=== PATIENT | male | born 1930 | race Caucasian/White ===

== ENCOUNTER 2016-07-01 12:23 | Emergency (ER) | payer MEDICARE, BC ==
[~2016-07-01] VITALS: Ht 180.3 cm; Wt 80.0 kg
[~2016-07-01 12:23] MED LIST: BLOOD PRESSURE; CIPR500T2 PO; DIOV80TA4 PO; LORT5TAB PO; METR-1 PO; PROS5TAB2 PO; STOO100C PO
[2016-07-01 12:24] VITALS: BP 123/73; PULSE 82; RESP 15; TEMP 98.1; O2SAT 95
[2016-07-01 12:38] VITALS: BP 183/88; PULSE 66; RESP 16; O2SAT 98
[2016-07-01] MEDS ORDERED: SODIUM CHLOR 0.9% 1000 ML INJ 1,000 ML IV SCH (12:45)
[2016-07-01] MEDS ORDERED: SODIUM CHLORIDE 0.9% FLUSH 10 ML FLUSH IV FLUSH PRN (12:45)
--- NOTE | 2016-07-01 12:50 | PD ---
HPI Chief Complaint: Pain: Acute or Chronic Time Seen by Provider: 12:37 Travel History International Travel<30 days: No Contact w/Intl Traveler<30days: No Traveled to known affect area: No History of Present Illness HPI 86-year-old male here for evaluation of right inguinal pain for the last week. Pain is been intermittent, worse with bending over. He has noticed a slight lump in this area. He was seen by his primary care physician who referred him to general surgeon Dr. Wang whom the patient has an appointment within 2 days. Patient reports history of appendectomy. No other abdominal surgeries. Last bowel movement was yesterday and was normal. No vomiting. No urinary symptoms. PFSH Past Medical History Diminished Hearing: No Genitourinary: Yes (ENLARGED PROSTATE) Hypertension: Yes Tetanus Vaccination: Unknown Influenza Vaccination: Yes Past Surgical History Appendectomy: Yes Social History Alcohol Use: Yes (2 DRINKS WITH DINNER) Tobacco Use: No Substance Use: No Allergies-Medications (Allergen,Severity, Reaction): Coded Allergies: No Known Allergies (Verified , 07/01/16) Reported Meds & Prescriptions Reported Meds & Active Scripts Active Review of Systems Except as stated in HPI: all other systems reviewed are Neg Physical Exam Narrative GENERAL: Well-developed, well-nourished, comfortable, no acute distress. SKIN: Focused skin assessment warm/dry. HEAD: Atraumatic. Normocephalic. EYES: Pupils equal and round. No scleral icterus. No injection or drainage. ENT: No nasal bleeding or discharge. Mucous membranes pink and moist. CARDIOVASCULAR: Regular rate and rhythm. No murmur appreciated. RESPIRATORY: No accessory muscle use. Clear to auscultation. Breath sounds equal bilaterally. GASTROINTESTINAL: Abdomen soft, non-tender, nondistended. No peritoneal signs. : Small right direct inguinal hernia that is easily reducible. Rest of exam is normal. MUSCULOSKELETAL: No obvious deformities. No clubbing. No cyanosis. No edema. NEUROLOGICAL: Awake and alert. No obvious cranial nerve deficits. Motor grossly within normal limits. Normal speech. PSYCHIATRIC: Appropriate mood and affect; insight and judgment normal. Data Data Last Documented VS Vital Signs Date Time Temp Pulse Resp B/P Pulse Ox O2 Delivery O2 Flow Rate FiO2 07/01/16 13:16 16 98 Room Air 07/01/16 12:38 66 183/88 07/01/16 12:24 98.1 Orders Complete Blood Count With Diff (07/01/16 12:45) Comprehensive Metabolic Panel (07/01/16 12:45) Prothrombin Time / Inr (Pt) (07/01/16 12:45) Act Partial Throm Time (Ptt) (07/01/16 12:45) Ct Abd/Pel W Iv Contrast(Rout) (07/01/16 12:45) Iv Access Insert/Monitor (07/01/16 12:45) Ecg Monitoring (07/01/16 12:45) Oximetry (07/01/16 12:45) Sodium Chlor 0.9% 1000 Ml Inj (Ns 1000 M (07/01/16 12:45) Sodium Chloride 0.9% Flush (Ns Flush) (07/01/16 12:45) Iohexol 350 Inj (Omnipaque 350 Inj) (07/01/16 14:07) Labs Laboratory Tests Test 07/01/16 13:00 White Blood Count 8.6 TH/MM3 Red Blood Count 4.39 MIL/MM3 Hemoglobin 15.3 GM/DL Hematocrit 43.7 % Mean Corpuscular Volume 99.7 FL Mean Corpuscular Hemoglobin 34.9 PG Mean Corpuscular Hemoglobin 35.0 % Concent Red Cell Distribution Width 13.1 % Platelet Count 188 TH/MM3 Mean Platelet Volume 7.3 FL Neutrophils (%) (Auto) 73.5 % Lymphocytes (%) (Auto) 17.5 % Monocytes (%) (Auto) 8.4 % Eosinophils (%) (Auto) 0.4 % Basophils (%) (Auto) 0.2 % Neutrophils # (Auto) 6.3 TH/MM3 Lymphocytes # (Auto) 1.5 TH/MM3 Monocytes # (Auto) 0.7 TH/MM3 Eosinophils # (Auto) 0.0 TH/MM3 Basophils # (Auto) 0.0 TH/MM3 CBC Comment DIFF FINAL Differential Comment Prothrombin Time 9.9 SEC Prothromb Time International 0.9 RATIO Ratio Activated Partial 23.0 SEC Thromboplast Time Sodium Level 137 MEQ/L Potassium Level 4.4 MEQ/L Chloride Level 106 MEQ/L Carbon Dioxide Level 22.5 MEQ/L Anion Gap 9 MEQ/L Blood Urea Nitrogen 26 MG/DL Creatinine 1.28 MG/DL Estimat Glomerular Filtration 53 ML/MIN Rate Random Glucose 99 MG/DL Calcium Level 8.7 MG/DL Total Bilirubin 1.1 MG/DL Aspartate Amino Transf 16 U/L (AST/SGOT) Alanine Aminotransferase 29 U/L (ALT/SGPT) Alkaline Phosphatase 69 U/L Total Protein 7.0 GM/DL Albumin 3.2 GM/DL [facility] Medical Decision Making Medical Screen Exam Complete: Yes Emergency Medical Condition: Yes Differential Diagnosis Inguinal hernia, bowel obstruction unlikely, strangulated/incarcerated hernia not likely, UTI, cystitis, colitis Narrative Course Vital signs reviewed. CBC is unremarkable. CMP is unremarkable. CT abdomen pelvis: CONCLUSION: 1. Moderate vascular disease. 2. I don't see an etiology for patient's right inguinal pain. 3. 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 4. 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 5. Large prostate. Patient has a direct right inguinal hernia that was easily reducible on my initial exam. His abdominal exam is benign. No peritoneal signs. He is resting comfortably. He has an appointment with surgical attending Dr. Wang in 2 days. Both the patient and the patient's family were made aware of all findings and were provided a copy of this CT abdomen pelvis report. He is stable for discharge home with outpatient follow-up. He was informed on when to return to the emergency department. He verbalizes understanding and agreement with plan. Diagnosis Primary Impression: Reducible right inguinal hernia Referrals: Antony Wang MD 2 days Additional Instructions: Follow-up with Dr. Wang in 2 days as scheduled. Return to the emergency department for worsening symptoms or any other concerns as discussed. Disposition: 01 DISCHARGE HOME Condition: Stable Hong Hardy MD Jul 01, 2016 12:50
[2016-07-01 13:16] VITALS: RESP 16; O2SAT 98
[2016-07-01 13:28] LABS: AUTOMATED NEUTROPHIL # 6.3 TH/MM3 (1.8-7.7); BASOPHIL % 0.2 % (0.0-2.0); EOSINOPHIL % 0.4 % (0.0-4.0); HEMATOCRIT 43.7 % (39.0-51.0); HEMO FLAGS DIFF FINAL; LYMPH % 17.5 % (9.0-44.0); LYMPHOCYTE # 1.5 TH/MM3 (1.0-4.8); MEAN CELL VOLUME 99.7 FL (80.0-100.0); MEAN CORPUSCULAR HEMOGLOBIN 34.9 PG (27.0-34.0); MONO % 8.4 % (0.0-8.0); NEUT % 73.5 % (16.0-70.0); PLATELET COUNT 188 TH/MM3 (150-450); RED BLOOD COUNT 4.39 MIL/MM3 (4.50-5.90); RED CELL DISTRIBUTION WIDTH 13.1 % (11.6-17.2); WHITE BLOOD COUNT 8.6 TH/MM3 (4.0-11.0)
[2016-07-01 13:36] LABS: INTERNATIONAL NORMALIZED RATIO 0.9 RATIO; PROTHROMBIN TIME - PATIENT 9.9 SEC (9.8-11.6)
[2016-07-01 13:50] LABS: ALT (GPT) 29 U/L (12-78); ANION GAP 9 MEQ/L (5-15); AST (GOT) 16 U/L (15-37); BICARBONATE 22.5 MEQ/L (21.0-32.0); BLOOD UREA NITROGEN 26 MG/DL (7-18); CHLORIDE 106 MEQ/L (98-107); GLOMERULAR FILTRATION RATE 53 ML/MIN (>89); POTASSIUM 4.4 MEQ/L (3.5-5.1); SODIUM (NA) 137 MEQ/L (136-145)
[2016-07-01 13:52] LABS: ALKALINE PHOSPHATASE 69 U/L (45-117); TOTAL BILIRUBIN ADULT 1.1 MG/DL (0.2-1.0)
[2016-07-01] MEDS ORDERED: IOHEXOL 350 MG/ML 10 ML VIAL (for RAD DIAG) IV ONE (14:07)
--- NOTE | 2016-07-01 14:20 | RADRPT ---
EXAM DATE/TIME: 07/01/2016 14:05 [facility] COMPARISON: No previous studies available for comparison. INDICATIONS : Right inguinal pain for one week. IV CONTRAST: 70 cc Omnipaque 350 (iohexol) IV ORAL CONTRAST: No oral contrast ingested. RADIATION DOSE: 9.28 CTDIvol (mGy) MEDICAL HISTORY : Hypertension. Enlarged prostate. SURGICAL HISTORY : Appendectomy. ENCOUNTER: Initial ACUITY: 1 day PAIN SCALE: 3/10 LOCATION: Right pelvis TECHNIQUE: Volumetric scanning of the abdomen and pelvis was performed. Using automated exposure control and adjustment of the mA and/or kV according to patient size, radiation dose was kept as low as reasonably achievable to obtain optimal diagnostic quality images. FINDINGS: Very minimal parenchymal changes are seen in the right lung base. There is no pericardial effusion. Two well-circumscribed 6 mm defects are present in the liver, probably cysts. Spleen, pancreas, adre nal glands and kidneys are unremarkable. Region of the cecum and terminal ileum appear unremarkable. Pelvic contents are remarkable only for a large prostate. There is no inguinal adenopathy identified . There is dilatation of both common iliac arteries with some mural thrombus identified on the left. T he iliac on the left is dilated to 2.5 cm. I don't see any etiology for the patient's right inguinal pain. CONCLUSION: 1. Moderate vascular disease. 2. I don't see an etiology for patient's right inguinal pain. 3. 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 4. 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 5. Large prostate. Dayne Villalba MD FACR on July 01, 2016 at 14:14 Board Certified Radiologist. This report was verified electronically.
== END 2016-07-01 15:34 | disposition home or self-care (01) ==
LOC: NEPA 12:23
DX: K40.90 Unilateral inguinal hernia, without obstruction or gangrene, not specified as recurrent (principal); I99.9 Unspecified disorder of circulatory system; I10 Essential (primary) hypertension; K76.89 Other specified diseases of liver; N40.0 Benign prostatic hyperplasia without lower urinary tract symptoms
CPT/HCPCS: 74177; 80053; 85025; 85610; 85730; 96360; 96361; 99284; J7030; Q9967

== ENCOUNTER → 2016-08-08 | Day surgery (SDC) | payer MEDICARE, BC ==
[~2016-08-08] MED LIST changes: +ACETAMINOPHEN 1000 MG/100 ML VIAL IV ONE; -BLOOD PRESSURE; +BUPIVACAINE/EPINEPHRINE 0.25% 50 ML VIAL ONE; -CIPR500T2 PO; -DIOV80TA4 PO; +LACTATED RINGER'S 1,000 ML BAG IV ONE; +LACTATED RINGER'S 1000 ML INJ 1,000 ML ONE; +LIDOCAINE 1%/EPINEPHrine 1:100,000 SOLN 20 ML VIAL ONE; -LORT5TAB PO; +MEPERIDINE HCL 25 MG/ML VIAL ONE; -METR-1 PO; +MIDAZOLAM HCL 2 MG/2 ML VIAL ONE; +ONDANSETRON HCL 4 MG/2 ML VIAL IV PUSH ONE; +PROPOFOL 200 MG/20 ML AMP IV ONE; -PROS5TAB2 PO; -STOO100C PO; +VANCOMYCIN HCL 1000 MG VIAL ONE; +ceFAZolin INJ 1,000 MG VIAL ONE
--- NOTE | 2016-08-09 17:26 | MP ---
cc: JUDY LOPEZ M.D., MICHAEL A. MD DATE OF SURGERY 08/08/2016 PROCEDURE 1. Right inguinal hernia repair with mesh. 2. 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 PREOPERATIVE DIAGNOSIS Symptomatic right inguinal hernia, reducible. POSTOPERATIVE DIAGNOSIS Symptomatic right inguinal hernia, reducible. ANESTHESIA LMA. SURGEON Kirsten Wang MD ESTIMATED BLOOD LOSS Less than 10 mL FLUIDS 1250 mL crystalloid COMPLICATIONS None. DRAINS None. SPECIMEN Lipoma of the cord to pathology. PROCEDURE IN DETAIL The patient was taken to the operating room after marking the correct site and having that confirmed by the patient. He was placed on the operating table in the supine position. After laryngeal mask anesthesia was accomplished, the right groin was shaved, prepped and draped. Time-out was taken confirming the correct patient, site and procedure to be performed. Skin and subcutaneous tissue was infiltrated with local anesthetic and an oblique incision made in the right groin. Dissection was carried down to the external oblique fascia and underlying tissues dissected free. The spermatic cord structures were brought up on a patrick drain. There was a lipoma along the cord; this was excised and passed off the table. A smaller lipoma remained along the cord; this was left in place. A 3 x 6 inch piece of atrium mesh was brought up and placed into the defect. The mesh was transfixed to the pubic tubercle with 2-0 Prolene suture which was then run along the shelving edge of the inguinal ligament to complete the lateral edge of the repair. The mesh was slit longitudinally to allow for egress of cord structures and interrupted 2-0 Prolene suture was placed along the transversalis fascia to secure the mesh. The iliohypogastric nerve was noted and left in its [place] surroundings with tissue disrupted as little as possible. No sutures were placed near this nerve. The medial leaf of mesh was then closed over the lateral leaf of mesh and secured with three 2-0 Prolene sutures to create a new internal ring. This allowed for egress of the cord structures but was tight enough to minimize the risk of recurrence along the cord. When this was completed and with hemostasis assured, the external oblique fascia was closed with a running 3-0 Vicryl suture. Care was taken to exclude the underlying tissues from the closure. The wound was closed with interrupted 3-0 Vicryl suture and the skin closed with 5-0 PDS in a running subcuticular fashion. The wound was dressed with Telfa and Tegaderm. The patient was taken back to the recovery room in stable condition. Sponge, needle and instrument counts were reported to be correct. The patient tolerated the procedure well. MD TALI Pretty/ /10:08 AM /5:20 PM [email or web address]
== END | disposition home or self-care (01) ==
LOC: ESDC 06:34
PROVIDERS: ATTEND Surgery Trauma Surgery
DX: K40.90 Unilateral inguinal hernia, without obstruction or gangrene, not specified as recurrent (principal); D17.6 Benign lipomatous neoplasm of spermatic cord
CPT/HCPCS: 00830; 49505; 88304; C1781; J0131; J0690; J2175; J2250; J2405; J3010; J3370; J7120

== ENCOUNTER → 2016-08-28 | Outpatient (CLI) | payer MEDICARE, BC ==
[2016-08-28 13:48] LABS: HEMATOCRIT 40.4 % (39.0-51.0); MEAN CELL VOLUME 100.1 FL (80.0-100.0); MEAN CORPUSCULAR HEMOGLOBIN 34.3 PG (27.0-34.0); MEAN CORPUSCULAR HGB CONC 34.2 % (32.0-36.0); PLATELET COUNT 231 TH/MM3 (150-450); RED BLOOD COUNT 4.04 MIL/MM3 (4.50-5.90); RED CELL DISTRIBUTION WIDTH 14.3 % (11.6-17.2); REVIEW FLAG FINAL; WHITE BLOOD COUNT 5.1 TH/MM3 (4.0-11.0)
[2016-08-28 14:13] LABS: BLOOD UREA NITROGEN 12 MG/DL (7-18); CHLORIDE 106 MEQ/L (98-107); GLUCOSE,FASTING 94 MG/DL (74-99); POTASSIUM 4.3 MEQ/L (3.5-5.1); SODIUM (NA) 142 MEQ/L (136-145)
[2016-08-28 14:19] LABS: ALKALINE PHOSPHATASE 76 U/L (45-117); ALT (GPT) 17 U/L (12-78); ANION GAP 7 MEQ/L (5-15); AST (GOT) 23 U/L (15-37); GLOMERULAR FILTRATION RATE 71 ML/MIN (>89); HDL CHOLESTEROL 58.2 MG/DL (40.0-60.0); LDL CHOLESTEROL 103 MG/DL (0-99); LDL CHOLESTEROL DIRECT 103 MG/DL (0-99); TOTAL BILIRUBIN ADULT 1.1 MG/DL (0.2-1.0)
== END ==
LOC: PLAB 08:22
PROVIDERS: ATTEND Family Medicine
DX: Z00.00 Encounter for general adult medical examination without abnormal findings (principal); N40.0 Benign prostatic hyperplasia without lower urinary tract symptoms; E78.4 Other hyperlipidemia; I10 Essential (primary) hypertension; E78.5 Hyperlipidemia, unspecified; F51.09 Other insomnia not due to a substance or known physiological condition
CPT/HCPCS: 36415; 80053; 80061; 83721; 85027

== ENCOUNTER → 2016-12-14 | Outpatient (CLI) | payer MEDICARE, BC ==
[~2016-12-14] MED LIST changes: -ACETAMINOPHEN 1000 MG/100 ML VIAL IV ONE; -BUPIVACAINE/EPINEPHRINE 0.25% 50 ML VIAL ONE; +FINA5TAB2 PO; -LACTATED RINGER'S 1,000 ML BAG IV ONE; -LACTATED RINGER'S 1000 ML INJ 1,000 ML ONE; -LIDOCAINE 1%/EPINEPHrine 1:100,000 SOLN 20 ML VIAL ONE; -MEPERIDINE HCL 25 MG/ML VIAL ONE; -MIDAZOLAM HCL 2 MG/2 ML VIAL ONE; +OCUVTAB4 PO; -ONDANSETRON HCL 4 MG/2 ML VIAL IV PUSH ONE; -PROPOFOL 200 MG/20 ML AMP IV ONE; +TERA10CA3 PO; -VANCOMYCIN HCL 1000 MG VIAL ONE; +VITA100T15 PO; -ceFAZolin INJ 1,000 MG VIAL ONE
[2016-12-14 09:32] LABS: HEMATOCRIT 41.4 % (39.0-51.0); MEAN CELL VOLUME 101.5 FL (80.0-100.0); MEAN CORPUSCULAR HGB CONC 34.5 % (32.0-36.0); PLATELET COUNT 187 TH/MM3 (150-450); RED BLOOD COUNT 4.08 MIL/MM3 (4.50-5.90); RED CELL DISTRIBUTION WIDTH 13.5 % (11.6-17.2); REVIEW FLAG FINAL
[2016-12-14 09:51] LABS: ANION GAP 10 MEQ/L (5-15); AST (GOT) 15 U/L (15-37); BLOOD UREA NITROGEN 17 MG/DL (7-18); CHLORIDE 101 MEQ/L (98-107); GLOMERULAR FILTRATION RATE 66 ML/MIN (>89); GLUCOSE,FASTING 75 MG/DL (74-99); POTASSIUM 3.9 MEQ/L (3.5-5.1); SODIUM (NA) 135 MEQ/L (136-145)
[2016-12-14 10:05] LABS: ALKALINE PHOSPHATASE 65 U/L (45-117); ALT (GPT) 14 U/L (12-78); HDL CHOLESTEROL 58.4 MG/DL (40.0-60.0); LDL CHOLESTEROL 85 MG/DL (0-99); LDL CHOLESTEROL DIRECT 82 MG/DL (0-99); TOTAL BILIRUBIN ADULT 1.1 MG/DL (0.2-1.0)
[2016-12-14 13:38] LABS: HEMOGLOBIN A1b 1.3 %; HEMOGLOBIN Ao 87.4 %; HEMOGLOBIN LA1C 1.9 %; HEMOGLOBIN P3 3.4 %
== END ==
LOC: PLAB 07:37
PROVIDERS: ATTEND Family Medicine
DX: R53.83 Other fatigue (principal); E78.2 Mixed hyperlipidemia; I10 Essential (primary) hypertension; R73.01 Impaired fasting glucose
CPT/HCPCS: 36415; 80053; 80061; 83036; 83721; 84443; 85027

== ENCOUNTER → 2017-05-14 | Outpatient (CLI) | payer MEDICARE, BC ==
[~2017-05-14] MED LIST changes: +CYAN100 PO; -VITA100T15 PO
[2017-05-14 10:24] LABS: HEMATOCRIT 42.6 % (39.0-51.0); HEMOGLOBIN 15.2 GM/DL (13.0-17.0); MEAN CORPUSCULAR HEMOGLOBIN 35.8 PG (27.0-34.0); MEAN CORPUSCULAR HGB CONC 35.8 % (32.0-36.0); MEAN PLATELET VOLUME 7.5 FL (7.0-11.0); PLATELET COUNT 192 TH/MM3 (150-450); RED BLOOD COUNT 4.26 MIL/MM3 (4.50-5.90); RED CELL DISTRIBUTION WIDTH 13.1 % (11.6-17.2); WHITE BLOOD COUNT 4.9 TH/MM3 (4.0-11.0)
[2017-05-14 10:52] LABS: ALBUMIN 3.5 GM/DL (3.4-5.0); AST (GOT) 15 U/L (15-37); BICARBONATE 27.5 MEQ/L (21.0-32.0); BLOOD UREA NITROGEN 15 MG/DL (7-18); CALCIUM 8.6 MG/DL (8.5-10.1); CHLORIDE 106 MEQ/L (98-107); CREATININE 1.06 MG/DL (0.60-1.30); GLOMERULAR FILTRATION RATE 66 ML/MIN (>89); GLUCOSE,FASTING 77 MG/DL (74-99); SODIUM (NA) 140 MEQ/L (136-145)
[2017-05-14 10:53] LABS: CHOLESTEROL 158 MG/DL (120-200)
[2017-05-14 10:58] LABS: ALKALINE PHOSPHATASE 80 U/L (45-117); ALT (GPT) 15 U/L (12-78); CHOLESTEROL/ HDL RATIO 2.61 RATIO; HDL CHOLESTEROL 60.5 MG/DL (40.0-60.0); LDL CHOLESTEROL 86 MG/DL (0-99); LDL CHOLESTEROL DIRECT 96 MG/DL (0-99); TOTAL BILIRUBIN ADULT 1.4 MG/DL (0.2-1.0); TOTAL PROTEIN 6.7 GM/DL (6.4-8.2); TRIGLYCERIDES 57 MG/DL (42-150)
== END ==
LOC: PLAB 07:48
PROVIDERS: ATTEND Family Medicine
DX: E78.2 Mixed hyperlipidemia (principal); I10 Essential (primary) hypertension
CPT/HCPCS: 36415; 80053; 80061; 83721; 85027

== ENCOUNTER → 2017-06-19 | Day surgery (SDC) | payer MEDICARE, BC ==
[~2017-06-19] MED LIST changes: +ACETAMINOPHEN 1000 MG/100 ML 100 ML IV ONE; +ACETAMINOPHEN/HYDROcodone 325 MG/5 MG TAB ONE; +BUPIVACAINE/EPINEPHRINE 0.25% 50 ML VIAL ONE; +LACTATED RINGER'S 1000 ML INJ 1,000 ML ONE; +LIDOCAINE 1%/EPINEPHrine 1:100,000 SOLN 30 ML VIAL ONE; +MIDAZOLAM HCL 2 MG/2 ML VIAL ONE; +ONDANSETRON HCL 4 MG/2 ML VIAL IV PUSH ONE; +PROPOFOL 100 MG/10 ML INJ IV ONE; +SODIUM CHLORIDE 0.9% 250 ML ADDBAG IV ONE; +VANCOMYCIN HCL 1000 MG VIAL ONE; +ceFAZolin INJ 1,000 MG VIAL ONE
--- NOTE | 2017-06-20 12:54 | MP ---
cc: Antony Wang MD, Mark MD DATE OF OPERATION: 06/19/2017 PREOPERATIVE DIAGNOSIS: Recurrent right inguinal hernia. POSTOPERATIVE DIAGNOSIS: Recurrent indirect right inguinal hernia. ANESTHESIA: LMA. SURGEON: Antony Wang MD ESTIMATED BLOOD LOSS: 50 mL INTRAVENOUS FLUIDS: 1000 mL crystalloid. PROCEDURE PERFORMED: Recurrent inguinal hernia repair. PROCEDURE IN DETAIL: The patient was seen in the holding area and the right side marked by the undersigned and confirmed by the patient. He was taken to the operating room and placed on the operating table in the supine position. The right groin was shaved, prepped and draped. Timeout was taken, confirming the correct patient, site and procedure to be performed. Skin and subcutaneous tissue was infiltrated with local anesthetic and an incision made through the patient's previous right lower quadrant incision. Dissection was carried down through the subcutaneous tissues to the external oblique fascia. Further subfascial injections were made with local anesthetic. The external oblique fascia was opened in the direction of the fibers. When this had been completed, the mesh was dissected off of the external oblique fascia. The patient was noted to have an indirect hernia defect and it appeared that the previously placed mesh either had an internal ring that was too large or the mesh suture did not hold to create the smaller opening. As such, the mesh was completely dissected around and the indirect hernia sac was completely dissected off of the spermatic cord structures. This was accomplished with a combination of blunt dissection and sharp dissection, as well as use of electrocautery. When this was completed, the hernia sac was reduced into the abdominal cavity. As the mesh was quite robust, it was felt that the patient would best be served by simple restructuring of the internal ring by fixing the ring size smaller. 0 Prolene sutures were used to close the internal ring down to still allow for egress of the spermatic cord structures, but to make it much tighter so that risk of recurrent herniation would be minimized. When this was completed and the wound was hemostatic, the remaining local anesthetic was injected into the transversalis fascia and subcutaneous tissues. The external oblique fascia was reclosed with a running 3-0 Vicryl suture. Care was taken to exclude the underlying spermatic cord structures from the closure. The wound was then closed with interrupted 3-0 Vicryl suture and the skin closed with 5-0 PDS in a running subcuticular fashion. The wound was dressed with Telfa and Tegaderm, and the patient was taken back to the recovery room in stable condition. Sponge, needle and instrument counts were reported to be correct x 2. The patient tolerated the procedure well. MD TALI Pretty/ANNABELLE , 08:11 PM , 08:33 PM
== END | disposition home or self-care (01) ==
LOC: ESDC 06:40
PROVIDERS: ATTEND Surgery Trauma Surgery
DX: K40.91 Unilateral inguinal hernia, without obstruction or gangrene, recurrent (principal)
CPT/HCPCS: 00830; 49520; C1781; J0131; J0690; J2250; J2405; J3010; J3370; J7120